=== PATIENT | female | born 1990 | race Hispanic/Latino ===

== ENCOUNTER 2017-08-29 03:09 | Observation (INO) | payer OTHER, SELFPAY ==
[2017-08-29] MEDS ORDERED: DIPHENHYDRAMINE 50 MG/ML VIAL ONE (04:13)
[2017-08-29] MEDS ORDERED: NA CHLORIDE 0.9% 1,000 ML ONE (04:13)
[2017-08-29] MEDS ORDERED: METOCLOPRAMIDE 10 MG/2mL INJ ONE (04:13)
[2017-08-29 04:47] LABS: Absolute Lymphocytes (CBC) 2.3 K/uL (0.7-4.9); Absolute Monocytes 0.8 K/uL (0.1-1.3); Absolute Neutrophil 11.8 K/uL (1.8-8.0); Basophils % 0.2 % (0-1.3); Eosinophils % 1.5 % (0-4.4); Hematocrit 37.6 % (36.0-45.0); Lymphocytes % 15.2 % (15.3-44.8); MCH 29.7 pg (27.0-35.0); MCV 88.3 fL (80-100); MPV 8.4 fL (7.6-11.3); RBC Red Blood Cell Count 4.26 M/uL (3.86-4.86)
[2017-08-29 04:55] LABS: Glucose Level 103 mg/dL (65-120); Lipase 25 U/L (22-51)
[2017-08-29 05:01] LABS: ALT/SGPT 14 IU/L (10-60); AST/SGOT 21 IU/L (10-42); Albumin 3.5 g/dL (3.2-5.5); Alkaline Phosphatase 47 IU/L (42-121); BUN Blood Urea Nitrogen 10 mg/dL (6-20); Bilirubin Direct < 0.1 mg/dL (0-0.2); Bilirubin Total 0.4 mg/dL (0.3-1.2); Protein, Total 6.4 g/dL (6.0-8.3)
[2017-08-29 05:02] LABS: Bicarbonate 21 mEq/L (21-31); Sodium Level 137 mEq/L (135-145)
[2017-08-29] MEDS ORDERED: POTASSIUM 25 MEQ EFFERV TAB ONE (05:40)
[2017-08-29] MEDS ORDERED: D5LR 1,000 ML IV ONE (05:41)
--- NOTE | 2017-08-29 06:50 | EDPHYS ---
Physician Documentation [facility] Name: Karla Montana Age: 26 yrs Sex: Female : 1990 Arrival Date: 08/29/2017 Time: 03:12 Bed 6 Private MD: ED Physician Donovan Angel HPI: 08/29 06:00 This 26 yrs old Female presents to ER via Wheelchair with complaints of gs Vomiting, 16 WEEKS . 06:00 The patient presents with sense of spinning, vertigo. Onset: The symptoms/episode gs began/occurred suddenly, just prior to arrival, 3 hour(s) ago. Context: occurred at home, occurred while the patient was getting up from bed. Modifying factors: the symptoms are aggravated by movement of head, standing up. Associated signs and symptoms: Pertinent negatives: combativeness, headache, shortness of breath. Associated signs and symptoms: Pertinent positives: vomiting. Severity of symptoms: At their worst the symptoms were. Severity of symptoms: At their worst the symptoms were severe in the emergency department the symptoms have improved moderately. Patient's baseline: Neuro: alert and fully oriented, Motor: no deficits, Ambulation: walks without assistance. The patient has experienced a previous episode, and the symptoms today are exactly the same. 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 - Social history:: Smoking status: Patient/guardian denies using tobacco. ROS: 06:00 All other systems are negative. gs Exam: 06:00 Head/Face: Normocephalic, atraumatic. Eyes: Pupils equal round and reactive to light, gs extra-ocular motions intact. Lids and lashes normal. Conjunctiva and sclera are non-icteric and not injected. Cornea within normal limits. Periorbital areas with no swelling, redness, or edema. ENT: Nares patent. No nasal discharge, no septal abnormalities noted. Tympanic membranes are normal and external auditory canals are clear. Oropharynx with no redness, swelling, or masses, exudates, or evidence of obstruction, uvula midline. Mucous membranes moist. Neck: Trachea midline, no thyromegaly or masses palpated, and no cervical lymphadenopathy. Supple, full range of motion without nuchal rigidity, or vertebral point tenderness. No Meningismus. Chest/axilla: Normal chest wall appearance and motion. Nontender with no deformity. No lesions are appreciated. Cardiovascular: Regular rate and rhythm with a normal S1 and S2. No gallops, murmurs, or rubs. Normal PMI, no JVD. No pulse deficits. Respiratory: Lungs have equal breath sounds bilaterally, clear to auscultation and percussion. No rales, rhonchi or wheezes noted. No increased work of breathing, no retractions or nasal flaring. Abdomen/GI: Soft, non-tender, with normal bowel sounds. No distension or tympany. No guarding or rebound. No evidence of tenderness throughout. Back: No spinal tenderness. No costovertebral tenderness. Full range of motion. 06:00 MS/ Extremity: Pulses equal, no cyanosis. Neurovascular intact. Full, normal range of motion. 06:00 Constitutional: The patient appears alert, awake, uncomfortable. 06:00 Skin: rash can be described as petechial rash under chin around mouth. 06:00 Neuro: Orientation: is normal, to person, place, time \T\ situation. Memory: is normal, Cranial nerves: CN II- XII are normal as tested, Nystagmus is absent. Cerebellar function: normal finger to nose testing, Motor: no acute changes, Sensation: no obvious gross deficits. Vital Signs: 03:22 BP 108 / 69; Pulse 78; Resp 19 S; Temp 98.1(O); Pulse Ox 99% on R/A; Weight 78.47 kg jd3 (R); Height 5 ft. 7 in. (170.18 cm) (R); Pain 0/10; 04:03 BP 102 / 69; Pulse 84; Resp 18 S; Pulse Ox 99% on R/A; ea 05:06 BP 92 / 74; Pulse 65; Resp 18; Pulse Ox 100% on R/A; ea 06:35 BP 105 / 71; Pulse 70; Resp 18 S; Pulse Ox 98% on R/A; ea 07:44 BP 96 / 65; Pulse 82; Resp 18; Pulse Ox 100% ; sv 03:22 Body Mass Index 27.10 (78.47 kg, 170.18 cm) jd3 MDM: 04:09 Patient medically screened. 06:00 Differential diagnosis: generalized weakness, idiopathic dizziness, vertigo. Data gs reviewed: vital signs, nurses notes. Response to treatment: the patient's symptoms have markedly improved after treatment. 06:46 Response to treatment: still very dizzy and not walking without getting very dizzy. gs 06:46 Response to treatment: vomiting has stopped. 08/29 04:10 Order name: Basic Metabolic Panel; Complete Time: 05:30 08/29 04:10 Order name: CBC with Diff; Complete Time: 05:30 08/29 04:10 Order name: Hepatic Function; Complete Time: 05:30 08/29 04:10 Order name: Lipase; Complete Time: 05:30 08/29 04:10 Order name: Urine Microscopic Only 08/29 06:59 Order name: Magnesium [facility] 08/29 06:59 Order name: CONS Physician Consult [facility] 08/29 06:59 Order name: Basic Metabolic Panel [facility] 08/29 06:59 Order name: Basic Metabolic Panel [facility] 08/29 04:10 Order name: IV Saline Lock; Complete Time: 04:31 08/29 04:10 Order name: Labs collected and sent; Complete Time: 04:31 08/29 06:59 Order name: Clear Liquid EDIN Administered Medications: 04:31 Drug: Benadryl 25 mg Route: IVP; Site: right antecubital; ea 05:17 Follow up: Response: No adverse reaction; Nausea is decreased ea 04:33 Drug: NS 0.9% 1000 ml Route: IV; Rate: 1 bolus; Site: right antecubital; ea 05:00 Follow up: IV Status: Completed infusion ea 04:33 Drug: Reglan 5 mg Route: IVP; Site: right antecubital; ea 05:17 Follow up: Response: No adverse reaction; Marked relief of symptoms ea 05:48 Drug: D5-LR 1000 ml Route: IV; Rate: bolus; Site: right antecubital; ea 06:28 Drug: Potassium Effervescent Tablet 50 mEq Route: PO; ea Disposition: 08/29/17 06:49 Hospitalization ordered by Reagan Augustin for Observation. Preliminary diagnosis are Vomiting of , unspecified, Vertiginous syndromes in diseases classified elsewhere. - [facility]. - Status is Observation. hb - Condition is Stable. - Problem is new. - Symptoms have improved. UTI on Admission? No Signatures: Dispatcher [employer] Brigitte Givens, RN RN Genesis Elliott RN RN Soraya Peguero RN RN ea Starr, Gregory, MD MD gs Davies, Jonathon, RN RN jd3
--- NOTE | 2017-08-29 06:50 | ER ---
Nurse's Notes [facility] Name: Karla Montana Age: 26 yrs Sex: Female : 1990 Arrival Date: 08/29/2017 Time: 03:12 Bed 6 Private MD: Diagnosis: Vomiting of , unspecified;Vertiginous syndromes in diseases classified elsewhere Presentation: 08/29 03:20 Presenting complaint: Patient states: She woke up 2 hours ago feeling dizzy, "my head ea felt heavy and I started vomiting". Reports having similar symptoms with last . Transition of care: patient was not received from another setting of care. Onset of symptoms was August 29, 2017. Care prior to arrival: None. 03:20 Method Of Arrival: Wheelchair ea 03:20 Acuity: GHISLAINE 4 ea Triage Assessment: 03:30 General: Appears uncomfortable, Behavior is calm, cooperative, appropriate for age. GI: ea Reports nausea, vomiting. 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 - Social history:: Smoking status: Patient/guardian denies using tobacco. Screenin:24 Abuse screen: Denies threats or abuse. Nutritional screening: No deficits noted. jd3 Tuberculosis screening: No symptoms or risk factors identified. Fall Risk Secondary diagnosis (15 points) impaired mobility, Gait- Weak (10 pts.). Total Rodarte Fall Scale indicates Low Risk Score (25-44 pts). Fall prevention measures have been instituted. Side Rails Up X 2 Placed close to Nursing Station Frequent Obs/Assesments occuring Family Present and informed to notify staff if they need to leave bedside. Assessment: 03:27 General: Appears uncomfortable, Behavior is calm, cooperative, appropriate for age. ea General: Pt reports she is dizzy, nauseous and has vomiting on and off for the past two hours. . Pain: Denies pain. Neuro: Level of Consciousness is awake, alert, obeys commands, Oriented to person, place, time, situation. Cardiovascular: Patient's skin is warm and dry. Respiratory: Airway is patent Respiratory effort is even, unlabored, Respiratory pattern is regular, symmetrical. GI: Abdomen is round non-distended, dry heaving. Derm: Skin is dry, Skin is normal, Skin temperature is warm. 04:15 Reassessment: Patient and/or family updated on plan of care and expected duration. Pain ea level reassessed. Patient is alert, oriented x 3, equal unlabored respirations, skin warm/dry/pink. 05:03 Reassessment: Patient and/or family updated on plan of care and expected duration. Pain ea level reassessed. Patient is alert, oriented x 3, equal unlabored respirations, skin warm/dry/pink. 06:01 Reassessment: Patient and/or family updated on plan of care and expected duration. Pain ea level reassessed. Pt resting with eyes closed, respirations even and unlabored, chest expansions even and unlabored. No s/s of pain or discomfort noted at this time. 06:22 Reassessment: Patient and/or family updated on plan of care and expected duration. Pain ea level reassessed. Patient is alert, oriented x 3, equal unlabored respirations, skin warm/dry/pink. Pt reports the room is still spinning, provider at bedside. Vital Signs: 03:22 BP 108 / 69; Pulse 78; Resp 19 S; Temp 98.1(O); Pulse Ox 99% on R/A; Weight 78.47 kg jd3 (R); Height 5 ft. 7 in. (170.18 cm) (R); Pain 0/10; 04:03 BP 102 / 69; Pulse 84; Resp 18 S; Pulse Ox 99% on R/A; ea 05:06 BP 92 / 74; Pulse 65; Resp 18; Pulse Ox 100% on R/A; ea 06:35 BP 105 / 71; Pulse 70; Resp 18 S; Pulse Ox 98% on R/A; ea 07:44 BP 96 / 65; Pulse 82; Resp 18; Pulse Ox 100% ; sv 03:22 Body Mass Index 27.10 (78.47 kg, 170.18 cm) j ED Course: 03:12 Patient arrived in ED. es 03:21 Karlos Arroyo, DORIS is Primary Nurse. j 03:24 Patient has correct armband on for positive identification. Bed in low position. Call jd3 light in reach. Side rails up X2. Adult w/ patient. 03:27 Triage completed. ea 03:27 Arm band placed on right wrist. Patient placed in an exam room, on a stretcher, on ea pulse oximetry. 03:54 Donovan Angel MD is Attending Physician. 03:58 Soraya Hodgson, RN is Primary Nurse. ea 04:31 Basic Metabolic Panel Sent. jd3 04:31 CBC with Diff Sent. jd3 04:31 Hepatic Function Sent. jd3 04:31 Lipase Sent. jd3 06:47 Reagan Augustin MD is Hospitalizing Provider. gs 07:53 No provider procedures requiring assistance completed. Patient admitted, IV remains in sv place. intact. Administered Medications: 04:31 Drug: Benadryl 25 mg Route: IVP; Site: right antecubital; ea 05:17 Follow up: Response: No adverse reaction; Nausea is decreased ea 04:33 Drug: NS 0.9% 1000 ml Route: IV; Rate: 1 bolus; Site: right antecubital; ea 05:00 Follow up: IV Status: Completed infusion ea 04:33 Drug: Reglan 5 mg Route: IVP; Site: right antecubital; ea 05:17 Follow up: Response: No adverse reaction; Marked relief of symptoms ea 05:48 Drug: D5-LR 1000 ml Route: IV; Rate: bolus; Site: right antecubital; ea 06:28 Drug: Potassium Effervescent Tablet 50 mEq Route: PO; ea Outcome: 06:49 Decision to Hospitalize by Provider. 07:53 Admitted to L \\T\\ D, accompanied by tech, via wheelchair, room 270, with chart, Report sv called to Tiera GEORGE 07:53 Condition: stable 07:53 Instructed on the need for admit. 08:05 Patient left the ED. Signatures: Mary Ann Doan RN RN sv Salyer, Edna es Baxter, Heather, RN RN Soraya Hodgson RN RN ea Starr, Gregory, MD MD gs Davies, Jonathon, RN RN jd3 Corrections: (The following items were deleted from the chart) 06:05 06:01 Reassessment: Patient and/or family updated on plan of care and expected ea duration. Pain level reassessed. Patient is alert, oriented x 3, equal unlabored respirations, skin warm/dry/pink. ea
[2017-08-29] MEDS ORDERED: ACETAMINOPHEN 500 MG TAB PO PRN (06:53)
[2017-08-29] MEDS ORDERED: METOCLOPRAMIDE 10 MG/2mL INJ IV PRN ×2 (06:55→08:31)
[2017-08-29] MEDS ORDERED: DIPHENHYDRAMINE 50 MG/ML VIAL IV PRN (06:56)
[2017-08-29] MEDS ORDERED: NA CHLORIDE 0.9% 1,000 ML IV SCH (07:00)
[2017-08-29 08:21] VITALS: O2SAT 100
[2017-08-29 08:32] VITALS: BMI 27.1
[2017-08-29] MEDS: POTASSIUM CL IV SCH ×3 (08:56→22:48)
[2017-08-29] MEDS: RINGERS LACTATE IV SCH ×2 (08:56→22:48)
[2017-08-29] MEDS ORDERED: POTASSIUM 25 MEQ EFFERV TAB PO SCH (09:00)
[2017-08-29 12:58] LABS: Urine Bacteria <20 /HPF (<20); Urine RBC <5 /HPF (NONE SEEN)
[2017-08-29 12:59] LABS: Urine Culture Reflex Order NOT NEEDED
[2017-08-29] MEDS: D5LR IV SCH (15:00)
[2017-08-29 16:49] LABS: Potassium 3.4 mEq/L (3.6-5.0)
--- NOTE | 2017-08-29 19:21 | PN ---
A 26-year-old female at 16 weeks gestation, seen in the emergency room with hyperemesis gravidarum. Potassium level of 3 and dizziness. Her neurological exam is basically normal, although she does jorje w a couple of beats of nystagmus. She says she is having some small amount a ringing in her ears occ asionally. Her vomiting is better. She has had at least a 2-1/2 L of fluids and she has been gettin g potassium supplements. She does reports hunger, but she does not like the broth that has been give n to her, so we will offer her something else. The emergency room put in a consult for Dr. Ibarra, and we will make sure he is aware of the consult, so he can do basic neurological exam on her. If t he patient improves enough, we will let her go home this afternoon, or if not, tomorrow morning. She knows she is not to try to ambulate without assistance until she is ambulating without any problems. Vital signs are all normal. Everything else in the physical exam is normal, other than the mild ny stagmus. Follow up according to neurological consult and hydration status. Hyperemesis gravidarum a t 16 weeks. MARY BETH/ADELITA Voice ID: [id number] Report ID: [id number]
[2017-08-29] MEDS ORDERED: METHYLERGONOVINE 0.2MG/ML AMP IM ONE (22:37)
--- NOTE | 2017-08-30 00:45 | CON ---
Reason For Consultation: Consultation called because of nausea, vomiting, and possible positional ve rtigo. History Of Present Illness: Ms. Montana is a 26-year-old patient who is 16 weeks , who earli er this morning around 1 a.m. woke up with severe vertiginous symptoms with the room spinning from ri ght to left. Symptoms were aggravated by turning from right to left and sitting up in the bed. Vanessa me severe enough to cause nausea and vomiting. She came into [facility] and was admitted fo r further evaluation. Blood work showed white blood cell count slightly elevated to 15.1 with neutro phils 78.1. Her chemistry panel did show low potassium of 3.0, low magnesium of 1.7, otherwise unrem arkable. Liver function studies and urinalysis were negative. She reports having prior episode of positional vertigo. She did note that she tried to do the home E pley maneuver at home but was unsuccessful. Past Medical History: Positional vertigo. Past Surgical History: None. Allergies: NO KNOWN DRUG ALLERGIES. Family History: Noncontributory. Social History: No alcohol, tobacco, or IV drug use. Medications: In terms of medications, she takes vitamins. Review of Systems: She denies any recent fevers, chills, nausea, vomiting, myalgias, arthralgias, headaches, weight erwin ge, or rash. No psychiatric complaints. No gastrointestinal complaints. No genitourinary complaint s. Physical Examination: Vital Signs: Blood pressure 107/69, pulse 72, respiratory rate 18, temperature 97.8, oxygen saturati on 100%. heart rate 150. Weight 171 pounds. Height 5 feet 7 inches. General: Ms. Montana is resting in bed at this point. She, when remaining still, has her no vertigo . However, if she does turn quickly to the left, she develops some vertiginous symptoms with nystagm us and if going to the right side, she does not develop significant vertiginous symptoms with nystagm us. Neurologic: Her cranial nerve examination revealed no focal deficits on 2 through 12. Motor examina tion, she has normal bulk and tone in the arms or legs. Fully strong at 5/5 proximally and distally. Sensory exam intact to light touch temperature in arms and legs. Reflexes 2+ upper and lower extre mities. Coordination intact in upper and lower extremities. Assessment: Ms. Montana is a 26-year-old patient with benign paroxysmal positional vertigo. She has no focal neurological deficits. Plan: We will confirm again at Babak-Hallpike, illustration of vertigo and then perform home Sue man euver. The patient is instructed on performance of this maneuver to help reduce and relieve her symp toms. The patient may be discharged home once she is adequately treated. Follow up in Dr. Ibarra' s clinic in one month. BOSSMAN Voice ID: [id number] Report ID: [id number]
[2017-08-30 04:52] LABS: BUN Blood Urea Nitrogen 7 mg/dL (6-20); Bicarbonate 24 mEq/L (21-31); Glucose Level 96 mg/dL (65-120); Potassium 3.6 mEq/L (3.6-5.0); Sodium Level 135 mEq/L (135-145)
[2017-08-30] MEDS: POTASSIUM CL IV SCH (05:50)
[2017-08-30] MEDS: D5LR IV SCH (05:50)
[2017-08-30 08:25] VITALS: BP 99/56; TEMP 98
--- NOTE | 2017-08-31 04:41 | DS ---
Date of Discharge: 08/30/2017 Karla Montana is a 26-year-old, at 16 weeks gestation, admitted through the emergency room with naus ea and vomiting, mild dehydration, low potassium levels. The patient gives a history that she has valenzuela d vertigo off and on throughout her life. She was examined by Dr. Dalton Ibarra, who made the same diagnosis. She runs low blood pressures but she is a small woman and she is . Her potassiu m level is now back to normal. She is ambulating without difficulty at this point. She will be dism issed to return to my office for routine followup. She knows any subsequent episodes of dizziness, s he is to lie down whether or not she was respond to Sue's maneuver, remains to be seen. We may try that if this problem continues. Diagnosis: At this point is nausea and vomiting of the . Dehydration. Vertigo. Now dismi ssed. MARY BETH/KALPANAL Voice ID: [id number] Report ID: [id number]
--- NOTE | 2017-09-07 12:27 | HP ---
Date of Admission: 08/29/2017 A 26-year-old at 16 weeks' gestation with diagnosis of hyperemesis gravidarum, dehydration and vertig o, was seen in the emergency room, sent up to Labor and Delivery for evaluation and hydration, noted to have low potassium levels, was started on potassium. Plan was to keep the patient for observation until she improved. She was seen by Dr. Ibarra and was diagnosed with vertigo. Her nausea and vo miting improved. Her past history was negative. Her physical exam was basically negative. No bleed ing, no leakage of fluid. Heart and lungs were clear. Breasts were not examined. Pelvic exam was n ot performed. Admitted for rehydration, hypokalemia and vertigo at 16 weeks' gestation. MARY BETH/ADELITA Voice ID: [id number]
--- NOTE | 2017-09-17 10:58 | PREOPHP ---
Date of Admission: 08/29/2017 History Of Present Illness: Karla Montana is a 26-year-old female, 16 weeks gestation, nausea and v omiting, dehydration, low potassium level. Seen in the emergency room and admitted for overnight obs ervation. Family History: Noncontributory. Allergies: NO ALLERGIES. Review of Systems: Negative. Physical Examination: Completely normal. Vital Signs: Vital signs are all stable. HEENT: Clear. Pupils equal, round, and reactive to light and accommodation. Conjunctivae well perf used. No oral, lingual, or buccal lesions. Chest and Lungs: Clear. Heart: Without murmurs, thrills, heaves, or rubs. Breasts: Not examined. Abdomen. A 16-week size. Extremities: Clear. Pelvic: Not done. Assessment And Plan: A 26-year-old with hyperemesis gravidarum, vertigo, 16 weeks , admitted for evaluation and stabilization. MARY BETH/ADELITA Voice ID: [id number]
== END 2017-08-30 08:35 | disposition home or self-care (01) ==
LOC: ER 03:09 → ERHOLD 06:52 → 2ND-WC 07:56
PROVIDERS: ADMIT Specialist; ATTEND Specialist
DX: O21.1 Hyperemesis gravidarum with metabolic disturbance (principal); Z3A.16 16 weeks gestation of pregnancy; O26.899 Other specified pregnancy related conditions, unspecified trimester; H81.10 Benign paroxysmal vertigo, unspecified ear
CPT/HCPCS: 36415; 80048; 80051; 80076; 81015; 83690; 83735; 85025; 96374; 96375; 97163; 99285; G0378; J2210; J2765; J7030

== ENCOUNTER 2018-02-11 10:03 | Inpatient (IN) | payer MEDICAID, OTHER, SELFPAY ==
[2018-02-11] MEDS ORDERED: Ringers Lactate 1,000 ML IV PRN (12:16)
[2018-02-11] MEDS ORDERED: METHYLERGONOVINE 0.2MG/ML AMP IM PRN (12:16)
[2018-02-11] MEDS ORDERED: PROMETHAZINE 25 MG/ML VIAL IM PRN (12:16)
[2018-02-11] MEDS ORDERED: MEPERIDINE HCL 25 MG/0.5 ML IV PRN (12:16)
[2018-02-11] MEDS ORDERED: CARBOPROST TROME 250 MCG/ML IM PRN (12:16)
[2018-02-11] MEDS ORDERED: BUTORPHANOL 1 MG/ML INJ IV PRN (12:16)
[2018-02-11 12:20] VITALS: BMI 31.0
[2018-02-11] MEDS ORDERED: OXYTOCIN/LR 20 UNIT/1,000 ML BAG IV ONE (12:30)
[2018-02-11 12:52] LABS: RPR Titer ND
[2018-02-11 12:55] LABS: Basophils % 0.3 % (0-1.3); Eosinophils % 1.6 % (0-4.4); Hematocrit 36.8 % (36.0-45.0); Lymphocytes % 16.3 % (15.3-44.8); MCH 29.6 pg (27.0-35.0); MCV 87.4 fL (80-100); MPV 8.9 fL (7.6-11.3); Monocytes % 8.4 % (3.3-12.3); RBC Red Blood Cell Count 4.21 M/uL (3.86-4.86)
[2018-02-11 12:57] LABS: Urine Appearance CLOUDY; Urine Bilirubin NEGATIVE (NEG); Urine Blood NEGATIVE (NEG); Urine Color YELLOW; Urine Glucose NEGATIVE (NEG); Urine Protein NEGATIVE (NEG)
[2018-02-11] MEDS ORDERED: OXYTOCIN/LR 20 UNIT/1,000 ML BAG IV SCH ×2 (13:00→16:00)
[2018-02-11] MEDS ORDERED: Ringers Lactate 1,000 ML IV SCH (13:00)
[2018-02-11 13:10] LABS: Urine Microscopic Reflex ORDER UMIC
[2018-02-11 13:17] LABS: Urine Bacteria >50 /HPF (<20); Urine Culture Reflex Order NOT NEEDED; Urine RBC <5 /HPF (NONE SEEN)
[2018-02-11] MEDS ORDERED: LIDOCAINE 2% INJ, 20 mL 0 ML ONE (13:24)
[2018-02-11] MEDS ORDERED: ACETAMINOPHEN 500 MG TAB PO PRN (15:12)
[2018-02-11] MEDS ORDERED: IBUPROFEN 200 MG TAB PO PRN (15:12)
[2018-02-11] MEDS ORDERED: BISACODYL 10 MG RECTAL SUPP RECT PRN (15:12)
[2018-02-11] MEDS ORDERED: DIPHENHYDRAMINE 25 MG TAB/CAP PO PRN (15:12)
[2018-02-11] MEDS ORDERED: DOCUSATE NA/SENNA CONC 1 TAB PO PRN (15:12)
[2018-02-11] MEDS ORDERED: Oxycodone HCl/Acetaminophen 1 TAB TAB PO PRN ×2 (15:12)
--- NOTE | 2018-02-11 17:24 | PREOPHP ---
Date of Admission: 02/11/2018 A 27-year-old multiparous female, 39 weeks 4 days, seen in my office. Noted to be in early labor. S ent to Labor and Delivery. She is now 3.5 cm, 60%, baby -1 station. FHTs normal, reactive. Vital s igns stable. Rh positive, immune to Rubella. Negative beta-strep screen. Rupture of membranes, mellisa ar fluid. She is francy every 2 minutes. At this point, anticipate rapid progress once she get s to 5 cm. Full admission talk given. MARY BETH/ADELITA Voice ID: [id number]
[2018-02-12 00:45] LABS: RPR (Rapid Plasma Reagin) NON-REACT (NON-REACT)
[2018-02-12 17:48] VITALS: BP 95/58; TEMP 97.7
[2018-02-12] MEDS ORDERED: Tdap (Diph,Pertuss(Acell),Tet Vac) 0.5 ML SYR IMVAC ONE ×2 (18:14→19:00)
[2018-02-13 03:38] LABS: HBsAG Nonreactive (Nonreactive)
--- NOTE | 2018-02-13 04:07 | DS ---
Date of Discharge: 02/12/2018 Hospital Course: This is a 27-year-old, 5, para 4, at 39 weeks 3 days, came in to my office in active labor. Sent to Labor and Delivery for delivery. Used Lamaze breathing techniques througho ut her labor. Rh positive, immune to Rubella. Negative beta strep screen. Second stage of 10 minut es or less. Spontaneous vaginal delivery of an 8 pound 14 ounce female, Apgars 9 and 9 or 9 and 10. No episiotomy. No laceration. Schultze delivery of the placenta. Less than 300 cc blood loss. Po stpartum; afebrile, ambulating, and voiding. Lochia is normal. Will be dismissed later this evening . To report back to my office in 6 weeks for followup. To report any temperature elevation of 100 d egrees or greater, severe pain, heavy bleeding, or any other type of abnormalities. She is requestin g her Tdap administration before she leaves the hospital as she did not receive this during the pregn emily although it she was offered several times. Prescription for tramadol given, although patient israel pena elect to take Motrin instead. Final Diagnoses: 1.Term intrauterine at 39 weeks 3 days. 2.Vaginal delivery. 3.Tdap offered. MARY BETH/ADELITA Voice ID: [id number] Report ID: [id number]
--- NOTE | 2018-02-13 09:37 | OP ---
Surgeon: Reagan Augustin MD A 27-year-old 5, para 4, at 39 weeks and approximately 3 days. Came to my office in early la bor. Noted to be 3.5 cm, 60% effaced, -1 station, francy every 2 to 3 minutes. Sent to labor a nd delivery, started on light Pitocin augmentation. Rupture of membranes. The patient went rapidly to complete. Second stage of 10 minutes or less. Spontaneous vaginal delivery of an estimated 9.5 t o 10 pound female. Nuchal cord x1. Apgars 9 and 9. Schultze delivery of the placenta, which was in spected and noted to be intact and normal. Less than 300 cc blood loss. The patient went completely natural during her labor and delivery. Beta-strep negative, Rh positive, immune to Rubella. Final Diagnoses: Term intrauterine 39 weeks 3 days, vaginal delivery, macrosomia, nu chal cord - loosely. MARY BETH/ADELITA Voice ID: [id number] Report ID: [id number]
== END 2018-02-12 18:20 | disposition home or self-care (01) | DRG 775 ==
LOC: 2ND-WC 12:05
PROVIDERS: ADMIT Specialist; ATTEND Specialist
PROC: 10907ZC Drainage of Amniotic Fluid, Therapeutic from Products of Conception, Via Natural or Artificial Opening (ICD-10-PCS; principal; 2018-02-11)
DX: O69.81X0 Labor and delivery complicated by cord around neck, without compression, not applicable or unspecified (principal); Z37.0 Single live birth; Z3A.39 39 weeks gestation of pregnancy
CPT/HCPCS: 36415; 81003; 81015; 85025; 86592; 86901; 87340; 90715; J2210; J2590

== ENCOUNTER 2020-09-06 04:17 | Inpatient (IN) | payer MEDICAID, OTHER, SELFPAY ==
[2020-09-06] MEDS ORDERED: BUTORPHANOL 1 MG/ML INJ IV PRN (04:46)
[2020-09-06] MEDS ORDERED: Ringers Lactate 1,000 ML IV PRN (04:46)
[2020-09-06] MEDS ORDERED: METHYLERGONOVINE 0.2MG/ML AMP IM PRN (04:46)
[2020-09-06] MEDS ORDERED: PROMETHAZINE INJ 25 MG/ML AMP IM PRN (04:46)
[2020-09-06] MEDS ORDERED: Ringers Lactate 1,000 ML IV SCH (05:00)
[2020-09-06 05:24] VITALS: BMI 32.8
[2020-09-06 05:28] LABS: Urine Appearance CLOUDY (Clear); Urine Bilirubin NEGATIVE (Negataive); Urine Blood NEGATIVE (Negative); Urine Color YELLOW (Yellow); Urine Glucose NEGATIVE (Negative); Urine Protein NEGATIVE (Negative); Urine Specific Gravity <=1.005 (1.005-1.030); Urine Urobilinogen 0.2 mg/dL (0.2-1.0)
[2020-09-06 05:28] LABS: Absolute Lymphocytes (CBC) 2.7 K/uL (0.7-4.9); Basophils % 0.2 % (0-1.3); Hematocrit 35.5 % (36.0-45.0); Lymphocytes % 20.7 % (15.3-44.8); MPV 8.8 fL (7.6-11.3); RBC Red Blood Cell Count 4.22 M/uL (3.86-4.86)
[2020-09-06 05:31] LABS: Urine Microscopic Reflex ORDER UMIC
[2020-09-06 06:04] LABS: Urine Bacteria 20-50 /HPF (<20); Urine RBC NONE SEEN /HPF (NONE SEEN)
[2020-09-06] MEDS ORDERED: OXYTOCIN/LR 20 UNIT/1,000 ML BAG IV ONE (07:19)
[2020-09-06] MEDS ORDERED: CARBOPROST TROME 250 MCG/ML IM ONE (09:15)
[2020-09-06] MEDS ORDERED: BISACODYL 10 MG RECTAL SUPP PR PRN (09:36)
[2020-09-06] MEDS ORDERED: ACETAMINOPHEN 500 MG TAB PO PRN (09:36)
[2020-09-06] MEDS ORDERED: IBUPROFEN 200 MG TAB PO PRN (09:36)
[2020-09-06] MEDS ORDERED: Oxycodone HCl/Acetaminophen 1 TAB TAB PO PRN (09:36)
[2020-09-06] MEDS ORDERED: DIPHENHYDRAMINE 25 MG TAB/CAP PO PRN (09:36)
[2020-09-06] MEDS ORDERED: DOCUSATE NA/SENNA CONC 1 TAB PO PRN (09:36)
[2020-09-06] MEDS ORDERED: OXYTOCIN/LR 20 UNIT/1,000 ML BAG IV SCH (10:00)
--- NOTE | 2020-09-06 11:15 | PREOPHP ---
Date of Admission: 09/06/2020 History Of Present Illness: A 29-year-old, 6, para 5, followed antepartum without complicati ons, scheduled for induction on Sunday, comes in early labor. Rh positive, immune to Rubella. CO VID negative. Strep negative. She is now 3.5 cm, still somewhat posterior. Rupture of membranes, c lear fluid. FHTs normal, reactive. Labor talk given. She is the same. She will go natural child rth. We will start light Pitocin and I think once she gets to 4-5 cm, we will see rapid progress fro m that point on. Full labor talk given. Family History: Grandfather with myocardial infarction. Grandmother, mother side with diabetes. Allergies: SHE HAS NO ALLERGIES. Past Surgical History: She has had no surgery. Medications: She has been on vitamins. Social History: She does not smoke. Physical Examination: HEENT: Clear. Pupils equal, round, and reacting to light and accommodation. Conjunctivae well perf used. No oral, lingual, or buccal lesions. Chest and Lungs: Clear. Heart: Without thrills, heaves, rubs, or murmurs. Breasts: Not examined, but on previous visits without masses. Abdomen: Term size. Baby is vertex, 3.5 cm, somewhat posterior, 50% effaced. Extremities: Clear without edema, cyanosis, or clubbing. Assessment And Plan: Admit for delivery. MARY BETH/ADELITA Voice ID: [id number]
--- NOTE | 2020-09-06 11:18 | OP ---
Surgeon: Reagan Augustin MD Karla Montana is a 29-year-old, 6, para 5, 38 weeks 5 days, scheduled for induction on , came in early labor. During the labor, received Stadol 1 mg IV x1. Went rapidly to complete a fter she got to 5 cm, second stage of 10 minutes or less, spontaneous vaginal delivery of an estimate d 7 pounds plus female, Apgars 9 and 9. No episiotomy. No laceration. Schultze delivery of the yari centa, which was inspected and noted be intact and normal. Less than 200 cc blood loss. Rh positive , immune to rubella. Negative Strep. Negative COVID. Tolerated all procedures well. Final Diagnoses: Term intrauterine 38 weeks 5 days, spontaneous labor, vaginal delivery. MARY BETH/ADELITA Voice ID: [id number] Report ID: [id number]
[2020-09-06] MEDS: Oxycodone HCl/Acetaminophen 1 TAB TAB PO PRN (12:15)
[2020-09-06 22:44] LABS: RPR (Rapid Plasma Reagin) NON-REACT (NON-REACT)
[2020-09-07] MEDS: Oxycodone HCl/Acetaminophen 1 TAB TAB PO PRN (05:40)
--- NOTE | 2020-09-07 10:30 | DS ---
Hospital Course: A 29-year-old, 6, para 5, 38 weeks 5 days, came in active labor, subsequent ly delivered an 8-pound 3-ounce female, Apgars 9 and 9. No episiotomy. No laceration. [place] of the placenta. Minimal blood loss estimated 200 mL or less. Strep negative. COVID negative . Tolerated all procedures well. ; afebrile, ambulating and voiding. Lochia is normal. She will be dismissed later today to report back to my office in 6 weeks for followup to report any t emperature elevation of 100 degrees or greater, severe pain, heavy bleeding, or any other type of abn ormality. Requests no analgesics on dismissal. TDAP again offered to the patient. She is thinking about an IUD. She will notify my office staff and we can put it in some time in the . Thi s has been thoroughly discussed with the patient. Final Diagnoses: Term intrauterine at 38 weeks 5 days, spontaneous labor, vaginal delivery . TDAP offered. MARY BETH/ADELITA Voice ID: [id number] Report ID: [id number]
[2020-09-07] MEDS ORDERED: IBUPROFEN 600 MG TAB ONE (12:22)
[2020-09-07 14:55] VITALS: BP 117/75; TEMP 98
[2020-09-10 04:37] LABS: HBsAG Nonreactive (Nonreactive)
== END 2020-09-07 14:35 | disposition home or self-care (01) | DRG 807 ==
LOC: L&D 04:17 → 2ND-WC 04:46
PROVIDERS: ADMIT Specialist; ATTEND Specialist
PROC: 10E0XZZ Delivery of Products of Conception, External Approach (ICD-10-PCS; principal; 2020-09-06)
PROC: 10907ZC Drainage of Amniotic Fluid, Therapeutic from Products of Conception, Via Natural or Artificial Opening (ICD-10-PCS; 2020-09-06)
DX: O80 Encounter for full-term uncomplicated delivery (principal); Z37.0 Single live birth; Z3A.38 38 weeks gestation of pregnancy; Z20.822 Contact with and (suspected) exposure to COVID-19
CPT/HCPCS: 36415; 81003; 81015; 85025; 86592; 86850; 86900; 86901; 87086; 87088; 87340; J0595; J2210; J2550; J2590; U0003

== ENCOUNTER 2020-10-27 20:18 | Inpatient (IN) | payer OTHER, SELFPAY ==
[2020-10-27 21:12] LABS: Urine Blood 1+ (Negative); Urine Glucose Negative (Negative); Urine Protein Trace (Negative)
[2020-10-27 21:20] LABS: Absolute Lymphocytes (CBC) 2.3 K/uL (0.7-4.9); Basophils % 0.4 % (0-1.3); Hematocrit 40.8 % (36.0-45.0); Lymphocytes % 13.4 % (15.3-44.8); MPV 8.5 fL (7.6-11.3); RBC Red Blood Cell Count 5.02 M/uL (3.86-4.86)
[2020-10-27] MEDS ORDERED: NA CHLORIDE 0.9% 2,000 ML ONE (21:30)
[2020-10-27] MEDS ORDERED: ACETAMINOPHEN 500 MG TAB ONE (21:30)
[2020-10-27] MEDS ORDERED: NA CHLORIDE 0.9% 100 ML ONE ×2 (21:30→23:14)
[2020-10-27] MEDS ORDERED: CEFTRIAXONE 1000 MG/VIAL ONE (21:30)
[2020-10-27 22:12] LABS: Protime INR 1.36
[2020-10-27 22:18] LABS: Albumin 3.8 g/dL (3.4-5.0); Bilirubin Direct 0.2 mg/dL (0-0.2); Protein, Total 8.5 g/dL (6.4-8.2)
[2020-10-27 22:19] LABS: Potassium 2.6 mmol/L (3.5-5.1)
[2020-10-27] MEDS ORDERED: KCL 20 MEQ/100 mL IVPB 20 MEQ/100 ML BAG IV ONE (23:14)
[2020-10-27 23:15] LABS: Urine Bacteria <20 /HPF (<20); Urine RBC <5 /HPF (NONE SEEN)
--- NOTE | 2020-10-27 23:19 | P.HP ---
Certification for Inpatient Patient admitted to: Inpatient With expected LOS: >2 Midnights Patient will require the following post-hospital care: None Practitioner: I am a practitioner with admitting privileges, knowledge of patient current condition, hospital course, and medical plan of care. Services: Services provided to patient in accordance with Admission requirements found in Title 42 Section 412.3 of the Code of Federal Regulations Patient History Date of Service: 10/27/20 Primary Care Provider: none Reason for admission: Pyelonephritis, sepsis History of Present Illness: 29-year-old female with no significant past medical history presents emergency department for right-sided back pain, high fevers. T-max 104, patient tachycardic upon arrival. Patient evaluated in the emergency department, labs significant for white blood cell count 17.4 with left shift, sodium 130 potassium 2.6, chloride 97 GFR 74 glucose 125 urinalysis with trace leuk esterase. Patient with right-sided CVA tenderness on exam, CT reveals right-sided pyelonephritis without any stones or hydro. Patient with sepsis without severe sepsis or septic shock at this time. Patient given 30 cc/kg normal saline fluid bolus in the emergency department, started on Rocephin. ED provider wishes to admit for further evaluation and management of sepsis/pyelonephritis. Allergies No Known Allergies Allergy (Verified 09/06/20 05:37) Home Medications: Vitamin [ VITAMIN] 1 tab PO DAILY 09/06/20 - Past Medical/Surgical History Diabetic: No -: NVD 2004, 2008, 2010 -: NVD 2004, 2008, 2010,2017 Psychosocial/ Personal History: Patient is unemployed, lives with family - Family History Family History: Reviewed- Non-Contributory - Social History Smoking Status: Never smoker Alcohol use: No CD- Drugs: No Caffeine use: No Place of Residence: Home Review of Systems 10-point ROS is otherwise unremarkable General: Fever, Chills, Weakness, Malaise Genitourinary: Other (Urinary frequency, foul odor urine) Musculoskeletal: Back Pain Physical Examination - Physical Exam General: Alert, In no apparent distress, Oriented x3 HEENT: PERRLA, Mucous membr. moist/pink Neck: Supple, 2+ carotid pulse no bruit, No LAD Respiratory: Clear to auscultation bilaterally, Normal air movement Cardiovascular: Regular rate/rhythm, Normal S1 S2 Capillary refill: <2 Seconds Gastrointestinal: Normal bowel sounds, No tenderness, Other (Positive CVA tenderness right side) Musculoskeletal: No tenderness Integumentary: No rashes Neurological: Normal speech, Normal strength at 5/5 x4 extr, Normal tone, Normal affect - Studies Laboratory Data (last 24 hrs) 10/27/20 20:59: PT 15.7 H, INR 1.36, APTT 29.6 10/27/20 20:59: WBC 17.40 H, Hgb 14.1, Hct 40.8, Plt Count 192 10/27/20 20:59: Sodium 130 L, Potassium 2.6 L*, BUN 9, Creatinine 0.90, Glucose 125 H, Total Bilirubin 1.0, AST 33, ALT 35, Alkaline Phosphatase 85, Lipase 204 Assessment and Plan - Plan Assessment Sepsis without severe sepsis or septic shock secondary to pyelonephritis Hypokalemia Plan Sepsis without severe sepsis or septic shock secondary to pyelonephritis: Patient received 30 cc/kg fluid bolus in the emergency department, continue with normal saline infusion, Rocephin, blood in urine cultures obtained. Will continue to monitor blood pressure closely. Anticipate clinical improvement next 48-72 hr. DVT prophylaxis Lovenox 40 mg subcutaneous once daily. Patient is approximately 2 months . Hypokalemia: Potassium protocol in place. Discharge Plan: Home Plan to discharge in: 72 Hours - Advance Directives Does patient have a Living Will: No Does patient have a Durable POA for Healthcare: No - Code Status/Comfort Care Code Status Assessed: Yes (Full code) Critical Care: No Time Spent Managing Pts Care (In Minutes): 55
--- NOTE | 2020-10-27 23:24 | ER ---
Nurse's Notes [facility] Name: Karla Montana Age: 29 yrs Sex: Female : 1990 Arrival Date: 10/27/2020 Time: 20:20 Bed 25 Private MD: Diagnosis: Acute tubulo-interstitial nephritis;Other sepsis Presentation: 10/27 20:22 Chief complaint: Patient states: lower back pain x2 days along with fever. Chief ak2 complaint:. Coronavirus screen: Client denies travel out of the [place] in the last 14 days. Ebola Screen: Patient negative for fever greater than or equal to 101.5 degrees Fahrenheit, and additional compatible Ebola Virus Disease symptoms Patient denies exposure to infectious person. Patient denies travel to an Ebola-affected area in the 21 days before illness onset. No symptoms or risks identified at this time. Initial Sepsis Screen: Does the patient meet any 2 criteria? Temp <36.0*C (96.8*F)) or > 38.3*C (100.9*F). Does the patient have a suspected source of infection? No. Patient's initial sepsis screen is negative. Risk Assessment: Do you want to hurt yourself or someone else? Patient reports no desire to harm self or others. Onset of symptoms was October 25, 2020. 20:22 Method Of Arrival: Ambulatory ak2 20:22 Acuity: GHISLAINE 3 ak2 Triage Assessment: 20:44 General: Appears. 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 - Social history:: Smoking status: unknown. Screenin:44 Abuse screen: Denies threats or abuse. Nutritional screening: No deficits noted. ap3 Tuberculosis screening: No symptoms or risk factors identified. Fall Risk None identified. Assessment: 20:44 General: patient assisted to the restroom via wheelchair. ap3 21:26 General: Appears distressed, uncomfortable, Behavior is calm, restless. General: ap3 Reports fever for 12-24 hours. Pain: Complains of pain in right low back Pain does not radiate. Pain began 2-3 days ago. Neuro: Level of Consciousness is awake, alert, obeys commands, Oriented to person, place, time, situation, Weakness Gait is unsteady, Speech is normal. Neuro: Reports headache since Sunday. Cardiovascular: Capillary refill < 3 seconds. Respiratory: Airway is patent Respiratory effort is even, unlabored, Respiratory pattern is regular, symmetrical, Denies shortness of breath. GI: Reports nausea, since 1-2 days ago. : Reports pain in right flank(s), urinary frequency, since 2-3 days ago. EENT: No signs and/or symptoms were reported regarding the EENT system. Musculoskeletal: Reports weakness in generalized. 10/28 00:10 Reassessment: Patient appears in no apparent distress at this time. Patient and/or em family updated on plan of care and expected duration. Pain level reassessed. Patient is alert, oriented x 3, equal unlabored respirations, skin warm/dry/pink. 01:30 Reassessment: Patient appears in no apparent distress at this time. Patient and/or em family updated on plan of care and expected duration. Pain level reassessed. Patient is alert, oriented x 3, equal unlabored respirations, skin warm/dry/pink. Vital Signs: 10/27 20:22 BP 107 / 77; Pulse 129; Resp 20; Temp 104; Pulse Ox 100% ; Weight 72.57 kg; Height 5 ak2 ft. 7 in. (170.18 cm); 21:30 BP 107 / 78; Pulse 108; Resp 16; Pulse Ox 98% on R/A; ap3 21:52 BP 105 / 80; Pulse 104; Resp 11; Temp 104.0; Pulse Ox 99% on R/A; ap3 22:59 BP 102 / 67; Pulse 93; Resp 20; Pulse Ox 97% on R/A; ap3 10/28 00:13 BP 97 / 54 RA Supine (auto/); Pulse 89; Resp 19; Pulse Ox 98% on R/A; ap3 00:46 BP 99 / 72; Pulse 87; Resp 18; Temp 98.9(O); Pulse Ox 99% on R/A; em 01:30 BP 98 / 64; Pulse 81; Resp 16; Pulse Ox 98% on R/A; em 10/27 20:22 Body Mass Index 25.06 (72.57 kg, 170.18 cm) ak2 ED Course: 10/27 20:20 Patient arrived in ED. cf2 20:22 Darling Lim, DORIS is Primary Nurse. ap3 20:28 Triage completed. ak2 20:41 Brent Michaud PA is PHCP. jr8 20:41 Herberth Randle MD is Attending Physician. jr8 20:44 Patient has correct armband on for positive identification. Placed in gown. Bed in low ap3 position. Call light in reach. Side rails up X 1. Adult w/ patient. environmental monitoring specialist on. Pulse ox on. NIBP on. Door closed. Noise minimized. 20:55 Inserted saline lock: 20 gauge in right antecubital area, using aseptic technique. ap3 Blood collected. 21:22 Chest Single View XRAY In Process Unspecified. EDMS 21:28 Inserted saline lock: 20 gauge in left antecubital area, using aseptic technique. ap3 21:30 Arm band placed on left wrist. ap3 22:[address] via wheelchair. ap3 22:36 CT Abd/Pelvis - IV Contrast Only In Process Unspecified. EDMS 23:22 Tyler Kelly MD is Hospitalizing Provider. jr8 10/28 02:30 No provider procedures requiring assistance completed. Patient admitted, IV remains in em place. Administered Medications: 10/27 21:19 Drug: Acetaminophen 1000 mg Route: PO; ap3 10/28 00:15 Follow up: Response: No adverse reaction ap3 10/27 21:19 Drug: NS 0.9% (30 ml/kg) 30 ml/kg Route: IV; Rate: bolus; Site: right antecubital; ap3 10/28 00:12 Follow up: IV Status: Completed infusion; IV Intake: 2150ml em 00:15 Follow up: Response: No adverse reaction; IV Status: Completed infusion; IV Intake: ap3 2150ml 10/27 21:19 Drug: Rocephin - (cefTRIAXone) 2 grams Route: IVPB; Infused Over: 30 mins; Site: right ap3 antecubital; 22:17 Follow up: Response: No adverse reaction ap3 10/28 00:12 Follow up: Response: No adverse reaction; IV Status: Completed infusion; IV Intake: 20mlem 00:15 Follow up: IV Status: Completed infusion ap3 10/27 22:59 Drug: Potassium Chloride 20 mEq Route: IV; Rate: calculated rate; Site: left ap3 antecubital; 10/28 02:34 Follow up: IV Status: Completed infusion; IV Intake: 100ml em 00:46 Drug: NS 0.9% 500 ml Route: IV; Rate: bolus; Site: right antecubital; em 02:34 Follow up: IV Status: Completed infusion; IV Intake: 500ml em Intake: 00:12 IV: 2150ml; Total: 2150ml. em 00:12 IV: 20ml; Total: 2170ml. em 00:15 IV: 2150ml; Total: 4320ml. ap3 02:34 IV: 100ml; Total: 4420ml. em 02:34 IV: 500ml; Total: 4920ml. em Outcome: 10/27 23:23 Decision to Hospitalize by Provider. jr8 10/28 02:33 Admitted to Tele accompanied by tech, via wheelchair, room 406, Report called to titi Arias RN Condition: improved Instructed on the need for admit, Demonstrated understanding of instructions. 02:42 Patient left the ED. em Signatures: Dispatcher [employer] Xiang Orourke, RN RN Brent Larios PA PA 8 Darling Lim RN RN ap3 Joann Lucas 2 Norman Baldwin2
--- NOTE | 2020-10-27 23:24 | EDPHYS ---
Physician Documentation [facility] Name: Karla Montana Age: 29 yrs Sex: Female : 1990 Arrival Date: 10/27/2020 Time: 20:20 Bed 25 Private MD: ED Physician Herberth Randle HPI: 10/27 23:23 This 29 yrs old Female presents to ER via Ambulatory with complaints of Low jr8 Back Pain, Fever. 23:23 The symptoms are located in the right flank. Onset: The symptoms/episode began/occurred jr8 acutely, today. Modifying factors: The patient symptoms are alleviated by nothing, the patient symptoms are aggravated by nothing. Associated signs and symptoms: Pertinent positives: abdominal pain, fever, nausea. Severity of symptoms: At their worst the symptoms were moderate, in the emergency department the symptoms are unchanged. The patient has not experienced similar symptoms in the past. The patient has not recently seen a physician. 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 - Social history:: Smoking status: unknown. ROS: 23:23 Eyes: Negative for injury, pain, redness, and discharge, ENT: Negative for injury, jr8 pain, and discharge, Neck: Negative for injury, pain, and swelling, Cardiovascular: Negative for chest pain, palpitations, and edema, Respiratory: Negative for shortness of breath, cough, wheezing, and pleuritic chest pain, MS/Extremity: Negative for injury and deformity, Skin: Negative for injury, rash, and discoloration, Neuro: Negative for headache, weakness, numbness, tingling, and seizure. 23:23 Constitutional: Positive for body aches, chills, fever. 23:23 Abdomen/GI: Positive for abdominal pain, nausea. 23:23 Back: Positive for flank pain, on the right. 23:23 All other systems are negative. Exam: 23:23 Respiratory: Lungs have equal breath sounds bilaterally, clear to auscultation and jr8 percussion. No rales, rhonchi or wheezes noted. No increased work of breathing, no retractions or nasal flaring. 23:23 Constitutional: The patient appears alert, awake, obviously ill, uncomfortable. 23:23 Cardiovascular: Rate: tachycardic, Rhythm: regular, Pulses: Pulses are 2+ in right radial artery and left radial artery. Heart sounds: normal, normal S1and S2, no S3 or S4, no murmur, no rub, no gallop, Edema: is not appreciated, JVD: is not appreciated. 23:23 Abdomen/GI: Inspection: abdomen appears normal, Bowel sounds: active, all quadrants, Palpation: soft, in all quadrants, mild abdominal tenderness, in the anterior aspect of right lateral abdomen, mass, is not appreciated, rebound tenderness, is not appreciated, voluntary guarding, is not appreciated, involuntary guarding, is not appreciated, no appreciated organomegaly, Indicators: McBurney's point is not tender, Horvath's sign is negative, Liver: no appreciated palpable abnormalities. 23:23 Back: pain, that is moderate, of the right flank, CVA tenderness, that is moderate, is noted on the right. 23:23 Skin: Warm, dry with normal turgor. Normal color with no rashes, no lesions, and no jr8 evidence of cellulitis. MS/ Extremity: Pulses equal, no cyanosis. Neurovascular intact. Full, normal range of motion. Neuro: Awake and alert, GCS 15, oriented to person, place, time, and situation. Motor strength 5/5 in all extremities. Sensory grossly intact. Vital Signs: 20:22 BP 107 / 77; Pulse 129; Resp 20; Temp 104; Pulse Ox 100% ; Weight 72.57 kg; Height 5 ak2 ft. 7 in. (170.18 cm); 21:30 BP 107 / 78; Pulse 108; Resp 16; Pulse Ox 98% on R/A; ap3 21:52 BP 105 / 80; Pulse 104; Resp 11; Temp 104.0; Pulse Ox 99% on R/A; ap3 22:59 BP 102 / 67; Pulse 93; Resp 20; Pulse Ox 97% on R/A; ap3 06/10 00:13 BP 97 / 54 RA Supine (auto/); Pulse 89; Resp 19; Pulse Ox 98% on R/A; ap3 00:46 BP 99 / 72; Pulse 87; Resp 18; Temp 98.9(O); Pulse Ox 99% on R/A; em 01:30 BP 98 / 64; Pulse 81; Resp 16; Pulse Ox 98% on R/A; em 10/27 20:22 Body Mass Index 25.06 (72.57 kg, 170.18 cm) ak2 MDM: 10/27 20:45 Patient medically screened. jr8 20:56 Patient medically screened. jr8 23:21 Data reviewed: vital signs, nurses notes, lab test result(s), radiologic studies, CT 8 scan. Data interpreted: Pulse oximetry: on room air is 97 %. Interpretation: normal. Counseling: I had a detailed discussion with the patient and/or guardian regarding: the historical points, exam findings, and any diagnostic results supporting the discharge/admit diagnosis, lab results, radiology results, the need for further work-up and treatment in the hospital. 10/27 20:47 Order name: Basic Metabolic Panel; Complete Time: 22:30 [facility] 10/27 20:47 Order name: Blood Culture Adult (2) [facility] 10/27 20:47 Order name: CBC with Diff; Complete Time: 21:28 [facility] 10/27 20:47 Order name: CPK; Complete Time: 22:30 [facility] 10/27 20:47 Order name: Lactate; Complete Time: 22:02 [facility] 10/27 20:47 Order name: LFT's; Complete Time: 22:30 [facility] 10/27 20:47 Order name: Lipase; Complete Time: 22:30 [facility] 10/27 20:47 Order name: Procalcitonin; Complete Time: 23:23 [facility] 10/27 20:47 Order name: Protime (+inr); Complete Time: 22:30 [facility] 10/27 20:47 Order name: Ptt, Activated; Complete Time: 22:30 [facility] 10/27 20:47 Order name: Urine Microscopic Only; Complete Time: 23:23 [facility] 10/27 21:11 Order name: Urine Dipstick-Ancillary; Complete Time: 21:15 EDMS 10/27 20:47 Order name: Chest Single View XRAY [facility] 10/27 20:47 Order name: Accucheck; Complete Time: 22:51 [facility] 10/27 20:47 Order name: Cardiac monitoring; Complete Time: 21:06 10/27 20:47 Order name: EKG - Nurse/Tech; Complete Time: 22:23 10/27 20:47 Order name: IV Saline Lock - Large Bore; Complete Time: 21:06 10/27 20:47 Order name: Labs collected and sent; Complete Time: 21:06 10/27 20:47 Order name: O2 Per Protocol; Complete Time: 21:06 10/27 20:47 Order name: O2 Sat Monitoring; Complete Time: 21:10/27 20:47 Order name: Urine Dipstick-Ancillary (obtain specimen); Complete Time: 21:10/27 21:29 Order name: CT Abd/Pelvis - IV Contrast Only 10/28 01:47 Order name: SARS-COV-2 RT PCR; Complete Time: 02:25 EDMS Administered Medications: 21:19 Drug: Acetaminophen 1000 mg Route: PO; [facility] 10/28 00:15 Follow up: Response: No adverse reaction [facility] 10/27 21:19 Drug: NS 0.9% (30 ml/kg) 30 ml/kg Route: IV; Rate: bolus; Site: right antecubital; 3 10/28 00:12 Follow up: IV Status: Completed infusion; IV Intake: 2150ml em 00:15 Follow up: Response: No adverse reaction; IV Status: Completed infusion; IV Intake: ap3 2150ml 10/27 21:19 Drug: Rocephin - (cefTRIAXone) 2 grams Route: IVPB; Infused Over: 30 mins; Site: right ap3 antecubital; 22:17 Follow up: Response: No adverse reaction 3 10/28 00:12 Follow up: Response: No adverse reaction; IV Status: Completed infusion; IV Intake: 20mlem 00:15 Follow up: IV Status: Completed infusion [facility] 10/27 22:59 Drug: Potassium Chloride 20 mEq Route: IV; Rate: calculated rate; Site: left ap3 antecubital; 10/28 02:34 Follow up: IV Status: Completed infusion; IV Intake: 100ml em 00:46 Drug: NS 0.9% 500 ml Route: IV; Rate: bolus; Site: right antecubital; em 02:34 Follow up: IV Status: Completed infusion; IV Intake: 500ml em Disposition: 09:09 Co-signature as Attending Physician, Herberth Randle MD I agree with the assessment and perfecto plan of care. Disposition: 10/27/20 23:23 Hospitalization ordered by Tyler Kelly for Inpatient Admission. Preliminary diagnosis are Acute tubulo-interstitial nephritis, Other sepsis. - Bed requested for Telemetry/MedSurg (Inpatient). - Status is Inpatient Admission. em - Condition is Stable. - Problem is new. - Symptoms have improved. Signatures: Dispatcher [employer] Herberth Florez MD MD cha Munoz, Edgar, RN RN em Brent Michaud, BENNY PA jr8 Hernandez Waldrop, SKEIN WINDER-C SKEIN WINDER-Cla1 July Jenkins, RN RN tl1 Darling Lim RN RN ap3 Norman Baldwin2 Corrections: (The following items were deleted from the chart) 01:53 10/27 23:23 Hospitalization Ordered by Tyler Kelly MD for Inpatient Admission. tl1 Preliminary diagnosis is Acute tubulo-interstitial nephritis; Other sepsis. Bed requested for Telemetry/MedSurg (Inpatient). Status is Inpatient Admission. Condition is Stable. Problem is new. Symptoms have improved. jr8 10/28 02:42 01:53 10/27/2020 23:23 Hospitalization Ordered by Tyler Klely MD for Inpatient em Admission. Preliminary diagnosis is Acute tubulo-interstitial nephritis; Other sepsis. Bed requested for Telemetry/MedSurg (Inpatient). Status is Inpatient Admission. Condition is Stable. Problem is new. Symptoms have improved. tl1
[2020-10-28] MEDS ORDERED: NA CHLORIDE 0.9% 500 ML ONE (01:00)
--- NOTE | 2020-10-28 02:27 | P.INFCA ---
Sepsis Focused Assessment - Focused Assessment Complete? Sepsis Focused Assessment Completed?: Yes - Sepsis Screen Result Severe Sepsis: Negative Septic Shock: Negative - Evaluation Current stage of sepsis: Ruled out Reason for ruling out sepsis: Lac normal, VSS - Vital Signs Reviewed: Yes Temperature: 99.4 F Heart rate: 95 Blood Pressure: 97/64 Respiratory Rate: 18 O2 Sat by Pulse Oximetry: 97
[2020-10-28] MEDS ORDERED: ONDANSETRON 4 MG/2 ML VIAL IV PRN (02:57)
[2020-10-28] MEDS: NA CHLORIDE 0.9% 1,000 ML IV SCH ×3 (03:25→20:14)
[2020-10-28] MEDS: MORPHINE 2 MG/ML SYR IV PRN ×2 (03:47→08:22)
[2020-10-28 04:23] VITALS: BMI 29.4
[2020-10-28 05:07] LABS: Absolute Lymphocytes (CBC) 1.6 K/uL (0.7-4.9); Basophils % 0.1 % (0-1.3); Hematocrit 36.2 % (36.0-45.0); Lymphocytes % 10.5 % (15.3-44.8); MPV 8.8 fL (7.6-11.3)
[2020-10-28 05:19] LABS: ALT/SGPT 30 U/L (12-78); AST/SGOT 25 U/L (15-37); Alkaline Phosphatase 75 U/L (45-117); BUN Blood Urea Nitrogen 7 mg/dL (7-18); Bicarbonate 25 mmol/L (21-32); Bilirubin Total 0.5 mg/dL (0.2-1.0); Glucose Level 111 mg/dL (74-106); Magnesium 2.1 mg/dL (1.8-2.4); Potassium 3.6 mmol/L (3.5-5.1); Protein, Total 7.1 g/dL (6.4-8.2); Sodium Level 140 mmol/L (136-145)
[2020-10-28 06:10] LABS: Urine Appearance CLEAR (Clear); Urine Bilirubin NEGATIVE (Negative); Urine Blood TRACE (Negative); Urine Color YELLOW (Yellow); Urine Glucose NEGATIVE (Negative); Urine Protein NEGATIVE (Negative); Urine pH 6.5 (5.0-7.0)
[2020-10-28 06:11] LABS: Urine Microscopic Reflex ORDER UMIC
[2020-10-28 06:22] LABS: Urine Bacteria <20 /HPF (<20); Urine RBC <5 /HPF (NONE SEEN); Urine Urothelial Cells <5 /HPF (NONE SEEN)
[2020-10-28] MEDS ORDERED: TRAMADOL HCL 50 MG TAB PO PRN (06:28)
[2020-10-28 07:07] LABS: Blood Morphology Comment NOT SEEN (NOT SEEN); Platelet Estimate ADEQ
[2020-10-28] MEDS: ACETAMINOPHEN 500 MG TAB PO PRN ×3 (08:22→21:07)
[2020-10-28] MEDS: ENOXAPARIN 40 MG/0.4 ML SQ SCH (08:23)
[2020-10-28] MEDS ORDERED: CEFTRIAXONE 1 GM/NS 50 ML 1 GM/50 ML BAG IV SCH (09:00)
[2020-10-28] MEDS ORDERED: POTASSIUM 25 MEQ EFFERV TAB PO ONE (09:00)
--- NOTE | 2020-10-28 09:32 | RAD REPORT ---
EXAM DESCRIPTION: RAD - Chest Single View - 10/27/2020 9:25 pm CLINICAL HISTORY: FEVER Chest pain. COMPARISON: No comparisons FINDINGS: Portable technique limits examination quality. The lungs are grossly clear. The heart is normal in size. No displaced fractures. IMPRESSION: No acute intrathoracic process suspected.
--- NOTE | 2020-10-28 11:20 | P.PN ---
Subjective Date of Service: 10/28/20 Primary Care Provider: none Chief Complaint: Pyelonephritis, sepsis Subjective: Improving (pain improved somewhat, reports headache as well. no new complaints continues to be febrile, but not as high) Review of Systems 10-point ROS is otherwise unremarkable Physical Examination - Vital Signs Temperature: 100.3 F Blood Pressure: 104/59 Pulse: 103 Respirations: 18 Pulse Ox (%): 99 - Studies Laboratory Data (last 24 hrs) 10/27/20 20:59: PT 15.7 H, INR 1.36, APTT 29.6 10/27/20 20:59: WBC 17.40 H, Hgb 14.1, Hct 40.8, Plt Count 192 10/27/20 20:59: Sodium 130 L, Potassium 2.6 L*, BUN 9, Creatinine 0.90, Glucose 125 H, Total Bilirubin 1.0, AST 33, ALT 35, Alkaline Phosphatase 85, Lipase 204 Assessment & Plan Physician Review Additional Text: Physical Exam General: Alert, In no apparent distress, Oriented x3 HEENT: normal conjnctiva, sclera anicteric Respiratory: Clear to auscultation bilaterally, Normal air movement Cardiovascular: Regular rate/rhythm, Normal S1 S2 Gastrointestinal: soft, nondistended, +R CVA tenderness Integumentary: No rashes Neurological: Normal speech, Normal strength at 5/5 x4 extr Problem List Sepsis without severe sepsis or septic shock secondary to pyelonephritis Hypokalemia -CVA tenderness, leukocytosis, procal elevated. prior UTIs, last one was ~9yrs ago -seems to be slightly improved, continue rocephin, IVF -f/u urine and blood cultures, UA without significant pyuria -serial exams, monitor closely -PRN tylenol ordered -hypokalemia resolved s/p replacement VTE: lovenox Code: full Dispo: anticipate dc home in ~48hrs, pending culture results, clinical improvement Time Spent Managing Pts Care (In Minutes): 35
--- NOTE | 2020-10-28 15:56 | RAD REPORT ---
CLINICAL HISTORY: Flank pain;Pyelonephritis. COMPARISON: None. TECHNIQUE: CT of the abdomen and pelvis was performed following intravenous administration of iodina gia contrast. Arterial phase images through the abdomen, and portal venous phase images through the a bdomen and pelvis were obtained. Oral contrast was not administered. Axial, coronal, and sagittal sof t tissue window reconstructions were created and sent to PACS. This exam was performed according to our departmental dose-optimization program, which includes autom ated exposure control, adjustment of the mA and/or kV according to patient size and/or use of iterati ve reconstruction technique. FINDINGS: Thoracic: No significant abnormality. Hepatobiliary: No concerning hepatic lesion identified. The hepatic and portal veins are patent. The gallbladder is unremarkable. No biliary ductal dilatation. Pancreas: Unremarkable. Spleen: Unremarkable. Gastrointestinal: No evidence of bowel obstruction or perienteric inflammation. The appendix is sugey l. Adrenals: No abnormality identified in either adrenal gland. Renal: Regions of geographic hypoenhancement in the right renal parenchyma, most prominent in the low er lobe. Questionable faint lesser degree of changes in the superior pole left kidney. Mild right-meche ed perinephric fat stranding. Minimal pelviectasis and urothelial hyperenhancement on the right. No d rainable fluid collections identified. No hydronephrosis or urolithiasis. Bladder/Reproductive: Unremarkable appearance of the urinary bladder by CT technique. Unremarkable CT appearance of the uterus and ovaries. Vascular/Lymphatics: No lymphadenopathy identified by CT size criteria. Abdominal aorta is normal in caliber. The major visceral vessels are patent. Musculoskeletal: No concerning osseous lesion identified. Fluid / peritoneum: No significant free fluid. No free intraperitoneal air identified. IMPRESSION 1. Changes of acute pyelonephritis, most prominent on the right. 2. No hydronephrosis. Electronically signed by: Ary Clemente MD 10/27/2020 11:00 PM CDT Due to temporary technical issues with the PACS/Fluency reporting system, reports are being signed by the in house radiologists without review as a courtesy to insure prompt reporting. The interpreting radiologist is fully responsible for the content of the report.
[2020-10-28] MEDS ORDERED: FAMOTIDINE 20 MG/2 ML VIAL IV ONE (20:44)
[2020-10-28] MEDS ORDERED: CEFTRIAXONE/SWI 1gm 1 GM/10 ML SYR IVP SCH (21:00)
[2020-10-29 03:10] VITALS: O2SAT 97
[2020-10-29 04:50] LABS: Absolute Lymphocytes (CBC) 2.1 K/uL (0.7-4.9); Basophils % 0.2 % (0-1.3); Hematocrit 32.9 % (36.0-45.0); Lymphocytes % 19.4 % (15.3-44.8); RBC Red Blood Cell Count 3.98 M/uL (3.86-4.86)
[2020-10-29] MEDS: NA CHLORIDE 0.9% 1,000 ML IV SCH ×2 (04:51→10:57)
[2020-10-29 05:09] LABS: ALT/SGPT 24 U/L (12-78); AST/SGOT 14 U/L (15-37); Albumin 2.8 g/dL (3.4-5.0); Alkaline Phosphatase 71 U/L (45-117); BUN Blood Urea Nitrogen 4 mg/dL (7-18); Bicarbonate 26 mmol/L (21-32); Bilirubin Total 0.5 mg/dL (0.2-1.0); Glucose Level 97 mg/dL (74-106); Magnesium 2.1 mg/dL (1.8-2.4); Potassium 3.2 mmol/L (3.5-5.1); Protein, Total 6.7 g/dL (6.4-8.2); Sodium Level 139 mmol/L (136-145)
[2020-10-29] MEDS: ENOXAPARIN 40 MG/0.4 ML SQ SCH (08:30)
[2020-10-29] MEDS: ACETAMINOPHEN 500 MG TAB PO PRN (08:30)
[2020-10-29] MEDS ORDERED: POTASSIUM CL SA 10 MEQ TAB PO ONE (09:00)
[2020-10-29 14:10] LABS: Urine Appearance CLEAR (Clear); Urine Bilirubin NEGATIVE (Negative); Urine Blood NEGATIVE (Negative); Urine Color YELLOW (Yellow); Urine Glucose NEGATIVE (Negative); Urine Protein NEGATIVE (Negative); Urine Specific Gravity <=1.005 (1.005-1.030); Urine Urobilinogen 0.2 mg/dL (0.2-1.0); Urine pH 6.5 (5.0-7.0)
[2020-10-29 14:15] LABS: Urine Microscopic Reflex ORDER UMIC
[2020-10-29 14:21] LABS: Urine Bacteria 20-50 /HPF (<20); Urine RBC NONE SEEN /HPF (NONE SEEN)
--- NOTE | 2020-10-29 16:05 | P.DS ---
Admission Date: 10/27/20 Discharge Date: 10/29/20 Primary Care Provider: none Disposition: ROUTINE DISCHARGE Discharge Condition: GOOD Reason for Admission: Pyelonephritis, sepsis Procedures: CXR (10/27): No acute intrathoracic process suspected. CT Abd/pelvis (10/27): IMPRESSION 1. Changes of acute pyelonephritis, most prominent on the right. 2. No hydronephrosis. FINDINGS: Thoracic: No significant abnormality. Hepatobiliary: No concerning hepatic lesion identified. The hepatic and portal veins are patent. The gallbladder is unremarkable. No biliary ductal dilatation. Pancreas: Unremarkable. Spleen: Unremarkable. Gastrointestinal: No evidence of bowel obstruction or perienteric inflammation. The appendix is normal. Adrenals: No abnormality identified in either adrenal gland. Renal: Regions of geographic hypoenhancement in the right renal parenchyma, most prominent in the lower lobe. Questionable faint lesser degree of changes in the superior pole left kidney. Mild right-sided perinephric fat stranding. Minimal pelviectasis and urothelial hyperenhancement on the right. No drainable fluid collections identified. No hydronephrosis or urolithiasis. Bladder/Reproductive: Unremarkable appearance of the urinary bladder by CT technique. Unremarkable CT appearance of the uterus and ovaries. Vascular/Lymphatics: No lymphadenopathy identified by CT size criteria. Abdominal aorta is normal in caliber. The major visceral vessels are patent. Musculoskeletal: No concerning osseous lesion identified. Fluid / peritoneum: No significant free fluid. No free intraperitoneal air identified. Problem List Sepsis without severe sepsis or septic shock secondary to pyelonephritis Hypokalemia Brief History of Present Illness: 29-year-old female with no significant past medical history presents emergency department for right-sided back pain, high fevers. T-max 104, patient tachycardic upon arrival. Patient evaluated in the emergency department, labs significant for white blood cell count 17.4 with left shift, sodium 130 potassium 2.6, chloride 97 GFR 74 glucose 125 urinalysis with trace leuk esterase. Patient with right-sided CVA tenderness on exam, CT reveals right-sided pyelonephritis without any stones or hydro. Patient with sepsis without severe sepsis or septic shock at this time. Patient given 30 cc/kg normal saline fluid bolus in the emergency department, started on Rocephin. ED provider wishes to admit for further evaluation and management of sepsis/pyelo nephritis. Hospital Course: Gradually improved on IV rocephin. On day of discharge she was feeling much better and requesting to be discharged home. She was tolerating diet, voiding without issue, and ambulating. She did have a fever to 100.6, with improvement of her overall fever curve. Given her significant improvement, she was monitored for the rest of the day and did not have any further fever. She was discharged home with levaquin for 12 days. Advised to pump and dump breastmilk 4-6s after taking the medication. Follow up with PCP in 3-5 days. return precautions given. Vital Signs/Physical Exam: Physical Exam General: Alert, In no apparent distress, Oriented x3 HEENT: normal conjnctiva, sclera anicteric Respiratory: Clear to auscultation bilaterally, Normal air movement Cardiovascular: Regular rate/rhythm, Normal S1 S2 Gastrointestinal: soft, nondistended, no CVA tenderness Integumentary: No rashes Neurological: Normal speech, Normal strength at 5/5 x4 extr Temp Pulse Resp BP Pulse Ox 97.8 F 72 18 99/60 98 10/29/20 12:00 10/29/20 12:00 10/29/20 12:00 10/29/20 12:21 10/29/20 12:00 Laboratory Data at Discharge: WBC 10.60 K/uL (4.3-10.9) D 10/29/20 04:15 Hgb 11.1 g/dL (12.0-15.0) L 10/29/20 04:15 Hct 32.9 % (36.0-45.0) L 10/29/20 04:15 Plt Count 181 K/uL (152-406) 10/29/20 04:15 PT 15.7 SECONDS (9.5-12.5) H 10/27/20 20:59 INR 1.36 10/27/20 20:59 APTT 29.6 SECONDS (24.3-36.9) 10/27/20 20:59 Sodium 139 mmol/L (136-145) 10/29/20 04:15 Potassium 3.2 mmol/L (3.5-5.1) L 10/29/20 04:15 BUN 4 mg/dL (7-18) L 10/29/20 04:15 Creatinine 0.59 mg/dL (0.55-1.3) 10/29/20 04:15 Glucose 97 mg/dL (74-106) 10/29/20 04:15 Magnesium 2.1 mg/dL (1.8-2.4) 10/29/20 04:15 Total Bilirubin 0.5 mg/dL (0.2-1.0) 10/29/20 04:15 AST 14 U/L (15-37) L 10/29/20 04:15 ALT 24 U/L (12-78) 10/29/20 04:15 Alkaline Phosphatase 71 U/L (45-117) 10/29/20 04:15 Lipase 204 U/L (73-393) 10/27/20 20:59 Home Medications: levoFLOXacin [Levaquin*] 750 mg PO DAILY #12 tab 10/29/20 New Medications: levoFLOXacin [Levaquin*] 750 mg PO DAILY #12 tab Physician Discharge Instructions: You were found to have a kidney infection. You improved with antibiotics and are discharged to complete 12 days of antibiotic. Levaquin - antibiotic - is ok to take while , but recommend pumping and dumping your breastmilk within 4-6 hours after taking the medication each day. Then it would be more safe to breastfeed your baby after that. Please follow up with your doctor in 3-5 days. Diet: Regular Activity: Ad wendie Followup: NONE,NONE [Primary Care Provider] - Time spent managing pt's care (in minutes): 45
[2020-10-29 16:12] VITALS: BP 102/62; TEMP 98.8
== END 2020-10-29 17:03 | disposition home or self-care (01) | DRG 872 ==
LOC: ER 20:18 → ERHOLD 22:59 → 4TH 10-28 02:32
PROVIDERS: ADMIT Hospitalist; ATTEND Hospitalist
DX: A41.9 Sepsis, unspecified organism (principal); N12 Tubulo-interstitial nephritis, not specified as acute or chronic; E87.6 Hypokalemia; Z88.8 Allergy status to other drugs, medicaments and biological substances; Z79.899 Other long term (current) drug therapy; Z56.0 Unemployment, unspecified; Z20.822 Contact with and (suspected) exposure to COVID-19
CPT/HCPCS: 36415; 71045; 74177; 80048; 80053; 80076; 81003; 81015; 82550; 83605; 83690; 83735; 84145; 85025; 85610; 85730; 87040; 93005; 99285; J0696; J1650; J2270; J2405; J3480; J7030; J7040; Q9967; U0003